=== PATIENT | female | born 1970 | race Caucasian/White ===

== ENCOUNTER 2017-06-19 19:43 | Observation (INO) | payer BC, OTHER ==
[~2017-06-19] VITALS: Ht 170.2 cm; Wt 112.1 kg
[~2017-06-19 19:43] MED LIST: IBUP-232 PO; LORTA5 PO; NUCY100T4 PO; SULF-154 PO
[2017-06-19 19:47] VITALS: BP 191/92; PULSE 114; RESP 20; TEMP 101.1; O2SAT 96
[2017-06-19] MEDS ORDERED: SODIUM CHLOR 0.9% 1000 ML INJ 1,000 ML IV SCH (20:02)
[2017-06-19] MEDS ORDERED: IBUP1TAB7 PO (20:05)
[2017-06-19] MEDS ORDERED: IMIT25TA PO (20:05)
[2017-06-19] MEDS ORDERED: NUCY100T9 PO (20:05)
--- NOTE | 2017-06-19 20:09 | PD ---
HPI Chief Complaint: Abdominal Pain Time Seen by Provider: 20:02 Travel History International Travel<30 days: No Contact w/Intl Traveler<30days: No Traveled to known affect area: No History of Present Illness HPI 47-year-old female presents to the emergency department by private transportation the care of her spouse for evaluation of 2 days of severe left lower quadrant abdominal pain. Patient has had prior history of diverticulitis ruptured ovarian cyst and kidney stone. Patient rates her pain 9-10/10 intensity. Patient states she took 800 mg ibuprofen prior to arrival to the emergency department. Patient has felt flushed and chilled over the past 2 days. Patient denies dysuria frequency urgency flank pain or hematuria. Patient's had no vaginal bleeding or vaginal discharge. Patient had no diarrhea mucoid or bloody stools. Patient's had nausea without vomiting. Patient denies any respiratory illness symptoms or chest pain. Patient is unable to identify exacerbating or alleviating factors. PFSH Past Medical History Narrative Medical Arthritis inoperable benign brain tumor migraine diverticulosis diverticulitis kidney stone ovarian cyst uterine/endometrial ablation laparotomy PVCs fibromyalgia chronic abdominal pain seizure cholecystectomy vein stripping breast augmentation; no tobacco use alcohol use no substance use; nursing notes reviewed Arthritis: Yes Blood Disorders: No Heart Rhythm Problems: Yes (FEW PREMATURE BEATS) Cancer: Yes (INOPERABLE BRAIN TUMOR) Cardiovascular Problems: Yes (irregular heart beat) Cerebrovascular Accident: Yes Diminished Hearing: No Diverticulitis: Yes Endocrine: No Fibromyalgia: Yes Gastrointestinal Disorders: Yes (ABD PAIN CHRONIC) Genitourinary: No Immune Disorder: No Neurologic: Yes (BENIGN BRAIN TUMOR) Psychiatric: No Reproductive: Yes (ENDOMETRIAL ABLATION: 1998) Respiratory: No Seizures: Yes PNEUMOCCOCAL Vaccine (Year): 2 ?: Unknown LMP: unknown Past Surgical History Cholecystectomy: Yes (1994) Gynecologic Surgery: Yes (UTERINE ABLATION) Hysterectomy: Yes (PARTIAL LINING REMOVAL) Other Surgery: Yes (VEIN STRIPPING BOTH LEGS, BREAST AUGMENTATION) Social History Alcohol Use: No Tobacco Use: No Substance Use: No Allergies-Medications (Allergen,Severity, Reaction): Coded Allergies: amoxicillin (Unverified Allergy, Severe, BLOODY DIARRHEA, 06/19/17) clavulanic acid (Unverified Allergy, Severe, BLOODY DIARRHEA, 06/19/17) cyclobenzaprine (Unverified Allergy, Severe, RASH, 06/19/17) tetanus toxoid, adsorbed (Unverified Allergy, Severe, "BASEBALL SIZE LUMP IN ARM, VERY PAINFUL", 06/19/17) triamcinolone (Unverified Allergy, Severe, Anaphylaxis, 06/19/17) codeine (Unverified Allergy, Mild, NAUSEA, UPSET STOMACH, 06/19/17) morphine (Unverified Allergy, Unknown, UNKNOWN, 06/19/17) Reported Meds & Prescriptions Reported Meds & Active Scripts Active Reported Imitrex (Sumatriptan Succinate) 25 Mg Tab 25 Mg PO ONCE PRN If a satisfactory response has not been obtained at 2 hours, a second dose may be administered Ibuprofen 800 Mg Tab 800 Mg PO Q8H PRN Nucynta ER (Tapentadol) 100 Mg Sherrell 100 Mg PO BID Review of Systems Except as stated in HPI: all other systems reviewed are Neg General / Constitutional: Positive: Fever, Chills Eyes: No: Visual changes HENT: No: Headaches, Neck Pain Cardiovascular: No: Chest Pain or Discomfort Respiratory: No: Shortness of Breath Gastrointestinal: Positive: Nausea, Abdominal Pain, No: Vomiting, Diarrhea, Hematemesis, Hematochezia Genitourinary: No: Urgency, Frequency, Dysuria, Pelvic Pain, Flank Pain Musculoskeletal: No: Myalgias, Arthralgias Skin: No Rash Neurologic: No: Weakness Psychiatric: Positive: Anxiety Hematologic/Lymphatic: No: Lymph Node Enlargement Physical Exam Narrative GENERAL: Well-developed well-nourished obese female in obvious discomfort no respiratory distress with fever 10 1F SKIN: Warm and dry. HEAD: Normocephalic. EYES: No scleral icterus. No injection or drainage. NECK: Supple, trachea midline. No JVD or lymphadenopathy. CARDIOVASCULAR: Increased regular rate and rhythm without murmurs, gallops, or rubs. RESPIRATORY: Breath sounds equal bilaterally. No accessory muscle use. GASTROINTESTINAL: Abdomen soft, diffusely tender to palpation without guarding or rebound, nondistended. MUSCULOSKELETAL: No cyanosis, or edema. BACK: Nontender without obvious deformity. No CVA tenderness. Data Data Last Documented VS Vital Signs Date Time Temp Pulse Resp B/P (MAP) Pulse Ox O2 Delivery O2 Flow Rate FiO2 06/19/17 20:30 97 18 143/85 (104) 96 Room Air 06/19/17 19:47 101.1 Orders Orders Complete Blood Count With Diff (4/22/18 20:02) Comprehensive Metabolic Panel (06/19/17 20:02) Lipase (06/19/17 20:02) Lactic Acid (06/19/17 20:) Urinalysis - C+S If Indicated (06/19/17 20:02) Ct Abd/Pel W Iv Contrast(Rout) (06/19/17 20:02) Iv Access Insert/Monitor (06/19/17 20:02) Ecg Monitoring (06/19/17:) Oximetry (06/19/17 20:) Ondansetron Inj (Zofran Inj) (06/19/17 20:15) Sodium Chlor 0.9% 1000 Ml Inj (Ns 1000 M (06/19/17 20:02) Sodium Chloride 0.9% Flush (Ns Flush) (06/19/17 20:15) Chest, Single Ap (06/19/17 20:02) Ed Urine Pregnancytest Poc (06/19/17 20:02) Blood Culture (06/19/17 20:06) Acetaminophen (Tylenol) (06/19/17 20:15) Hydromorphone Pf Inj (Dilaudid Pf Inj) (06/19/17 20:30) Iohexol 350 Inj (Omnipaque 350 Inj) (06/19/17 21:00) Ciprofloxacin 400 Mg Premix (Cipro 400 M (06/19/17 21:15) Metronidazole 500 Mg Inj (Flagyl 500 Mg (06/19/17 21:15) Labs Laboratory Tests Test 06/19/17 20:00 White Blood Count 12.5 TH/MM3 Red Blood Count 4.17 MIL/MM3 Hemoglobin 12.6 GM/DL Hematocrit 37.1 % Mean Corpuscular Volume 89.1 FL Mean Corpuscular Hemoglobin 30.3 PG Mean Corpuscular Hemoglobin Concent 34.0 % Red Cell Distribution Width 12.1 % Platelet Count 319 TH/MM3 Mean Platelet Volume 7.9 FL Neutrophils (%) (Auto) 77.3 % Lymphocytes (%) (Auto) 15.6 % Monocytes (%) (Auto) 5.1 % Eosinophils (%) (Auto) 1.3 % Basophils (%) (Auto) 0.7 % Neutrophils # (Auto) 9.6 TH/MM3 Lymphocytes # (Auto) 2.0 TH/MM3 Monocytes # (Auto) 0.6 TH/MM3 Eosinophils # (Auto) 0.2 TH/MM3 Basophils # (Auto) 0.1 TH/MM3 CBC Comment DIFF FINAL Differential Comment Urine Collection Type CLEAN CATCH Urine Color YELLOW Urine Turbidity CLEAR Urine pH 5.5 Urine Specific [place] 1.010 Urine Protein NEG mg/dL Urine Glucose (UA) NEG mg/dL Urine Ketones NEG mg/dL Urine Occult Blood MOD Urine Nitrite NEG Urine Bilirubin NEG Urine Urobilinogen 0.2 MG/DL Urine Leukocyte Esterase NEG Urine RBC 4-9 /hpf Urine WBC 0-2 /hpf Urine Squamous Epithelial Cells 0-5 /hpf Urine Bacteria RARE /hpf Urine Mucus /lpf Microscopic Urinalysis Comment CULT NOT INDICATED Blood Urea Nitrogen 19 MG/DL Creatinine 1.20 MG/DL Random Glucose 116 MG/DL Total Protein 8.0 GM/DL Albumin 3.7 GM/DL Calcium Level 9.2 MG/DL Alkaline Phosphatase 104 U/L Aspartate Amino Transf (AST/SGOT) 141 U/L Alanine Aminotransferase (ALT/SGPT) 109 U/L Total Bilirubin 0.4 MG/DL Sodium Level 136 MEQ/L Potassium Level 4.1 MEQ/L Chloride Level 103 MEQ/L Carbon Dioxide Level 27.2 MEQ/L Anion Gap 6 MEQ/L Estimat Glomerular Filtration Rate 48 ML/MIN Lactic Acid Level 0.7 mmol/L Lipase 119 U/L [facility] Medical Decision Making Medical Screen Exam Complete: Yes Emergency Medical Condition: Yes Medical Record Reviewed: Yes Interpretation(s) CT abd/pel: CONCLUSION: 1. The imaging findings are diagnostic of acute diverticulitis involving the mid sigmoid colon. There is trace free fluid in the pelvis. No abscess or free air is present. 2. Mildly enlarged common bile duct in this patient post cholecystectomy. This presumably is a normal appearance post cholecystectomy. Roc Corona MD on June 19, 2017 at 21:05 Board Certified Radiologist. This report was verified electronically. Last Impressions Chest X-Ray 06/19/172001 Signed Impressions: Service Date/Time: Monday, June 19, 2017 20:12 - CONCLUSION: No free air is visualized. No acute cardiopulmonary abnormality is identified. Roc Corona MD CBC & BMP Diagram 06/19/17 20:00 Total Protein 8.0, Albumin 3.7, Calcium Level 9.2, Alkaline Phosphatase 104, Aspartate Amino Transf (AST/SGOT) 141 H, Alanine Aminotransferase (ALT/SGPT) 109 H, Total Bilirubin 0.4 Vital Signs Date Time Temp Pulse Resp B/P (MAP) Pulse Ox O2 Delivery O2 Flow Rate FiO2 06/19/17 20:30 97 18 143/85 (104) 96 Room Air 06/19/17 19:47 101.1 114 20 191/92 (125) 96 Lactic acid 0.7, not elevated Differential Diagnosis Sepsis UTI pyelonephritis renal colic obstructive uropathy diverticulitis with or without abscess or perforation bowel obstruction atypical appendicitis Narrative Course Patient placed on court recording monitor with continuous pulse oximetry IV access obtained specimens collected and sent for resulting patient administered IV fluids Zofran for nausea and Dilaudid 1 mg IV for 9-10/10 pain also acetaminophen 1 g for fever At 8:55 PM patient notes symptom improvement Patient meets sepsis criteria based on heart rate, fever, leukocytosis, source intestine/diverticulitis, and potentially severe sepsis secondary to renal insufficiency; patient is clinically improved and has received Cipro and Flagyl for diverticulitis. Patient continues to complain of pain, although less intense. Plan for admission for iv fluids iv antibiotics and pain management. Call placed to [facility] service. Sepsis Criteria SIRS Criteria (2 or more): Temp > 100.9 or < 96.8, Heart rate over 90, WBC > 50689, < 4000 or > 10% bands Sepsis Criteria (SIRS+source): Infect source susp/known (diverticulitis) Severe Sepsis (+one): Acute Oliguria/Renal Failure Physician Communication Physician Communication call placed to [facility] service Diagnosis Primary Impression: Acute diverticulitis Additional Impression: Sepsis Eli Gonzalez MD Jun 19, 2017 20:08
[2017-06-19] MEDS ORDERED: SODIUM CHLORIDE 0.9% FLUSH 10 ML FLUSH IV FLUSH PRN ×2 (20:15→22:00)
[2017-06-19] MEDS ORDERED: ACETAMINOPHEN 500 MG CPLT PO ONE (20:15)
[2017-06-19] MEDS ORDERED: ONDANSETRON HCL 4 MG/2 ML VIAL IVP ONE (20:15)
[2017-06-19 20:20] LABS: BILIRUBIN, URINE NEG (NEG); BLOOD, URINE MOD (NEG); GLUCOSE,URINE NEG (NEG); KETONE, URINE NEG (NEG); NITRITE,URINE NEG (NEG); PH, URINE 5.5 (5.0-8.5); URINE COLOR YELLOW (YELLW/STRAW); URINE LEUKOCYTE ESTERASE NEG (NEG)
--- NOTE | 2017-06-19 20:27 | RADRPT ---
EXAM DATE/TIME: 06/19/2017 20:12 [facility] COMPARISON: CHEST SINGLE AP, August 18, 2012, 16:19. INDICATIONS : Evaluate for free air. Left side abdominal pain. MEDICAL HISTORY : None. SURGICAL HISTORY : Breast augmentation. ENCOUNTER: Initial ACUITY: 1 day PAIN SCORE: 6/10 LOCATION: Left Abdomen. FINDINGS: Portable AP view of the chest demonstrates a normal-sized cardiac silhouette. No effusion, consolidat ion, or pneumothorax is visualized. The bones and soft tissues demonstrate no acute abnormality. No f ree air is seen beneath the hemidiaphragms. CONCLUSION: No free air is visualized. No acute cardiopulmonary abnormality is identified. Roc Corona MD on June 19, 2017 at 20:24 Board Certified Radiologist. This report was verified electronically.
[2017-06-19 20:30] VITALS: BP 143/85; PULSE 97; RESP 18; O2SAT 96
[2017-06-19] MEDS ORDERED: HYDROmorphone HCL PF 2 MG/ML VIAL IV PUSH ONE (20:30)
[2017-06-19 20:31] LABS: CHLORIDE 103 MEQ/L (98-107); SODIUM (NA) 136 MEQ/L (136-145)
[2017-06-19 20:33] LABS: SQUAMOUS EPITHELIAL CELL URINE 0-5 /hpf (0-5); WBC, URINE 0-2 /hpf (0-5)
[2017-06-19 20:34] LABS: BACTERIA, URINE RARE /hpf
[2017-06-19 20:35] LABS: ALBUMIN 3.7 GM/DL (3.4-5.0); CALCIUM 9.2 MG/DL (8.5-10.1)
[2017-06-19 20:36] LABS: BICARBONATE 27.2 MEQ/L (21.0-32.0); BLOOD UREA NITROGEN 19 MG/DL (7-18); GLUCOSE,RANDOM 116 MG/DL (74-106)
[2017-06-19 20:38] LABS: ALT (GPT) 109 U/L (10-53); AST (GOT) 141 U/L (15-37); AUTOMATED NEUTROPHIL # 9.6 TH/MM3 (1.8-7.7); BASOPHIL # 0.1 TH/MM3 (0-0.2); BASOPHIL % 0.7 % (0.0-2.0); EOSINOPHIL # 0.2 TH/MM3 (0-0.4); EOSINOPHIL % 1.3 % (0.0-4.0); HEMATOCRIT 37.1 % (35.0-46.0); HEMOGLOBIN 12.6 GM/DL (11.6-15.3); LYMPH % 15.6 % (9.0-44.0); MEAN CELL VOLUME 89.1 FL (80.0-100.0); MEAN CORPUSCULAR HEMOGLOBIN 30.3 PG (27.0-34.0); MEAN PLATELET VOLUME 7.9 FL (7.0-11.0); MONO % 5.1 % (0.0-8.0); MONOCYTE # 0.6 TH/MM3 (0-0.9); NEUT % 77.3 % (16.0-70.0); PLATELET COUNT 319 TH/MM3 (150-450); RED BLOOD COUNT 4.17 MIL/MM3 (4.00-5.30); RED CELL DISTRIBUTION WIDTH 12.1 % (11.6-17.2); WHITE BLOOD COUNT 12.5 TH/MM3 (4.0-11.0)
[2017-06-19 20:39] LABS: GLOMERULAR FILTRATION RATE 48 ML/MIN (>89)
[2017-06-19 20:40] LABS: TOTAL BILIRUBIN ADULT 0.4 MG/DL (0.2-1.0)
[2017-06-19 20:41] LABS: ALKALINE PHOSPHATASE 104 U/L (45-117)
[2017-06-19] MEDS ORDERED: IOHEXOL 350 MG/ML 10 ML VIAL (for RAD DIAG) IVCONTRAST ONE (21:00)
[2017-06-19 21:12] VITALS: BP 119/62; PULSE 97; RESP 16; O2SAT 94
--- NOTE | 2017-06-19 21:12 | RADRPT ---
EXAM DATE/TIME: 06/19/2017 20:44 [facility] COMPARISON: No previous studies available for comparison. INDICATIONS : Left lower quadrant pain. IV CONTRAST: 75 cc Omnipaque 350 (iohexol) IV ORAL CONTRAST: No oral contrast ingested. RADIATION DOSE: 22.10 CTDIvol (mGy) MEDICAL HISTORY : Diverticulitis. SURGICAL HISTORY : Cholecystectomy. Hysterectomy. ENCOUNTER: Initial ACUITY: 1 day PAIN SCALE: 10/10 LOCATION: Left lower quadrant TECHNIQUE: Volumetric scanning of the abdomen and pelvis was performed. Using automated exposure control and ad justment of the mA and/or kV according to patient size, radiation dose was kept as low as reasonably achievable to obtain optimal diagnostic quality images. DICOM format image data is available electro nically for review and comparison. FINDINGS: LOWER LUNGS: The visualized lower lungs are clear. Breast implants are present. LIVER: Homogeneous density without lesion. Common bile duct is mildly enlarged measuring 11 mm but tapers di stally. Gallbladder is absent with clips in the gallbladder fossa. SPLEEN: Normal size without lesion. PANCREAS: Within normal limits. KIDNEYS: Normal in size and shape. There is no mass, stone or hydronephrosis. ADRENAL GLANDS: Within normal limits. VASCULAR: There is no aortic aneurysm. BOWEL/MESENTERY: The stomach and small bowel demonstrate no abnormality. There is sigmoid diverticulosis. An 8 cm fe th segment of mid sigmoid colon demonstrates circumferential wall thickening with surrounding inflamm ation. There is trace free fluid in the pelvis. No free air is seen. ABDOMINAL WALL: Within normal limits. RETROPERITONEUM: There is no lymphadenopathy. BLADDER: No wall thickening or mass. REPRODUCTIVE: No acute abnormality. INGUINAL: There is no lymphadenopathy or hernia. MUSCULOSKELETAL: No acute abnormality. CONCLUSION: 1. The imaging findings are diagnostic of acute diverticulitis involving the mid sigmoid colon. There is trace free fluid in the pelvis. No abscess or free air is present. 2. Mildly enlarged common bile duct in this patient post cholecystectomy. This presumably is a normal appearance post cholecystectomy. Roc Corona MD on June 19, 2017 at 21:05 Board Certified Radiologist. This report was verified electronically.
[2017-06-19] MEDS ORDERED: CIPROFLOXACIN 400 MG PREMIX 200 ML IV ONE (21:15)
[2017-06-19] MEDS ORDERED: metroNIDAZOLE 500 MG INJ 100 ML IV ONE (21:15)
[2017-06-19 21:25] VITALS: TEMP 99.6
[2017-06-19] MEDS ORDERED: SODIUM CHLOR 0.9% 1000 ML INJ 1,000 ML IV ONE (21:45)
[2017-06-19] MEDS ORDERED: NALOXONE HCL 0.4 MG/ML AMP IV PUSH PRN (22:00)
[2017-06-19] MEDS ORDERED: ACETAMINOPHEN 325 MG TAB PO PRN (22:00)
[2017-06-19] MEDS ORDERED: ONDANSETRON HCL 4 MG/2 ML VIAL IVP PRN (22:00)
[2017-06-19 22:10] VITALS: BP 169/85; PULSE 84; O2SAT 96
[2017-06-19] MEDS ORDERED: HYDROmorphone HCL PF 2 MG/ML VIAL IV PUSH PRN (22:45)
[2017-06-19] MEDS ORDERED: ENOXAPARIN SODIUM 40 MG/0.4 ML SYRINGE SQ SCH (23:00)
[2017-06-19] MEDS: SODIUM CHLOR 0.9% 1000 ML INJ 1,000 ML IV SCH (23:41)
[2017-06-20] VITALS: BP 100/57; PULSE 73; RESP 20; TEMP 97.2; O2SAT 97
[2017-06-20 04:00] VITALS: BP 93/55; PULSE 61; RESP 20; TEMP 96.8; O2SAT 97
[2017-06-20] MEDS: metroNIDAZOLE 500 MG INJ 100 ML IV SCH ×2 (05:02→11:57)
[2017-06-20 05:52] LABS: AUTOMATED NEUTROPHIL # 8.1 TH/MM3 (1.8-7.7); BASOPHIL # 0.1 TH/MM3 (0-0.2); BASOPHIL % 0.7 % (0.0-2.0); EOSINOPHIL # 0.1 TH/MM3 (0-0.4); EOSINOPHIL % 1.3 % (0.0-4.0); HEMATOCRIT 34.3 % (35.0-46.0); HEMOGLOBIN 11.3 GM/DL (11.6-15.3); LYMPH % 17.7 % (9.0-44.0); MEAN CELL VOLUME 89.9 FL (80.0-100.0); MEAN CORPUSCULAR HEMOGLOBIN 29.5 PG (27.0-34.0); MEAN CORPUSCULAR HGB CONC 32.8 % (32.0-36.0); MEAN PLATELET VOLUME 7.7 FL (7.0-11.0); MONO % 6.9 % (0.0-8.0); MONOCYTE # 0.8 TH/MM3 (0-0.9); NEUT % 73.4 % (16.0-70.0); PLATELET COUNT 276 TH/MM3 (150-450); RED BLOOD COUNT 3.81 MIL/MM3 (4.00-5.30); RED CELL DISTRIBUTION WIDTH 11.9 % (11.6-17.2); WHITE BLOOD COUNT 11.1 TH/MM3 (4.0-11.0)
[2017-06-20] MEDS: SODIUM CHLOR 0.9% 1000 ML INJ 1,000 ML IV SCH ×2 (06:00→14:00)
[2017-06-20 06:18] LABS: ALBUMIN 2.8 GM/DL (3.4-5.0); ALKALINE PHOSPHATASE 87 U/L (45-117); ALT (GPT) 95 U/L (10-53); AST (GOT) 102 U/L (15-37); BICARBONATE 25.3 MEQ/L (21.0-32.0); BLOOD UREA NITROGEN 15 MG/DL (7-18); CALCIUM 7.7 MG/DL (8.5-10.1); CHLORIDE 112 MEQ/L (98-107); CREATININE 0.67 MG/DL (0.50-1.00); GLOMERULAR FILTRATION RATE 94 ML/MIN (>89); GLUCOSE,RANDOM 106 MG/DL (74-106); SODIUM (NA) 142 MEQ/L (136-145); TOTAL BILIRUBIN ADULT 0.9 MG/DL (0.2-1.0); TOTAL PROTEIN 6.4 GM/DL (6.4-8.2)
[2017-06-20 07:30] VITALS: BP 111/55; PULSE 63; RESP 20; TEMP 96.6; O2SAT 95
--- NOTE | 2017-06-20 07:56 | HHI.HP ---
[facility] Primary [facility] Physician Gibson Call MD Admission Diagnosis Acute diverticulitis; sepsis; renal insufficiency Diagnoses: (1) Acute diverticulitis (2) Sepsis Chief Complaint: Abdominal pain Travel History International Travel<30 Days: No Contact w/Intl Traveler <30 Da: No Traveled to Known Affected Are: No History of Present Illness This is a pleasant 47-year-old female patient with a known medical history of diverticulosis, migraines, benign brain tumor who presented to the ED with complaints of severe left lower quadrant abdominal pain. Patient states around 2 days ago she started to develop subjective fever and chills, was lying in bed and just could not get comfortable. She went Tuesday with similar complaints, feeling like the pain would come in waves and eventually on Tuesday she was unable to walk, was hunched over due to the pain and it was so severe she presented via private vehicle to the emergency department. Patient does admit to a history of diverticulosis. She states she has had one flareup before over 10 years ago, was following with Dr. Barney, but has not had any problems since then. Patient rates the pain a 10 out of 10 on pain scale at its worst, denies any radiation of pain, admitted to taking ibuprofen with minimal relief before presentation. Denies any associated vomiting, does admit to some nausea and shortness of breath. Does admit to subjective fevers although did not take it at home. Denies any cough, dysuria or diarrhea. Denies any hematozemia. PCP is Dr. Baker. 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 Patient also does report of a history of PVCs and irregular heartbeat, did undergo a stress test last November with benign abnormalities, is following with cardiology. Patient denies any tobacco abuse. Family history significant for hypertension. Review of Systems Constitutional: COMPLAINS OF: Diaphoretic episodes, Fever, Chills Eyes: DENIES: Blurred vision, Diplopia Respiratory: COMPLAINS OF: Shortness of breath, DENIES: Cough, Sputum production Cardiovascular: DENIES: Chest pain, Palpitations Gastrointestinal: COMPLAINS OF: Abdominal pain, Nausea, DENIES: Black stools, Bloody stools, Constipation, Diarrhea, Vomiting Musculoskeletal: DENIES: Joint pain Neurologic: DENIES: Abnormal gait Psychiatric: COMPLAINS OF: Anxiety Except as stated in HPI: all other systems reviewed are Neg Past Family Social History Past Medical History Arthritis Fibromyalgia Migraines Benign brain tumor that is inoperable Diverticulosis History of kidney stones Ovarian cysts PVCs and irregular heartbeat History of seizures Past Surgical History Cholecystectomy Uterine ablation Partial hysterectomy History of vein stripping in bilateral lower extremities. Breast augmentation Reported Medications Active Reported Imitrex (Sumatriptan Succinate) 25 Mg Tab 25 Mg PO ONCE PRN If a satisfactory response has not been obtained at 2 hours, a second dose may be administered Ibuprofen 800 Mg Tab 800 Mg PO Q8H PRN Nucynta ER (Tapentadol) 100 Mg Sherrell 100 Mg PO BID Allergies: Coded Allergies: amoxicillin (Unverified Allergy, Severe, BLOODY DIARRHEA, 06/19/17) clavulanic acid (Unverified Allergy, Severe, BLOODY DIARRHEA, 06/19/17) cyclobenzaprine (Unverified Allergy, Severe, RASH, 06/19/17) tetanus toxoid, adsorbed (Unverified Allergy, Severe, "BASEBALL SIZE LUMP IN ARM, VERY PAINFUL", 06/19/17) triamcinolone (Unverified Allergy, Severe, Anaphylaxis, 06/19/17) codeine (Unverified Allergy, Mild, NAUSEA, UPSET STOMACH, 06/19/17) morphine (Unverified Allergy, Unknown, UNKNOWN, 06/19/17) Active Ordered Medications Current Medications Medications (Trade) Dose Ordered Sig/Mona Route Start Time Stop Time Status Last Admin Ciprofloxacin/ Dextrose 200 ml @ 200 mls/hr Q12H IV 06/20/17 09:00 Metronidazole 100 ml @ 100 mls/hr Q6H IV 06/20/17 04:00 06/20/17 05:02 Sodium Chloride 1,000 ml @ 125 mls/hr Q8H IV 06/19/17 22:00 06/19/17 23:41 (NS Flush) 2 ml UNSCH PRN IV FLUSH 06/19/17 22:00 (NS Flush) 2 ml BID IV FLUSH 06/20/17 09:00 (Tylenol) 650 mg Q4H PRN PO 06/19/17 22:00 (Zofran Inj) 4 mg Q6H PRN IVP 06/19/17 22:00 (Narcan Inj) 0.4 mg UNSCH PRN IV PUSH 06/19/17 22:00 (Lovenox Inj) 40 mg Q24H SQ 06/19/17 23:00 06/19/17 22:36 (Dilaudid Pf Inj) 1 mg Q4H PRN IV PUSH 06/19/17 22:45 Family History Both mother and father have a history of hypertension. Social History Patient denies any history of or current tobacco use, alcohol or illicit drug use. Physical Exam Vital Signs Vital Signs Date Time Temp Pulse Resp B/P (MAP) Pulse Ox O2 Delivery O2 Flow Rate FiO2 06/20/17 04:00 96.8 61 20 93/55 (68) 97 06/20/17 00:06 06/20/17 00:00 97.2 73 20 100/57 (71) 97 06/19/17 22:10 84 169/85 (113) 96 Room Air 06/19/17 21:25 99.6 06/19/17 21:12 97 16 119/62 (81) 94 Room Air 06/19/17 20:30 97 18 143/85 (104) 96 Room Air 06/19/17 19:47 101.1 114 20 191/92 (125) 96 Physical Exam GENERAL: Well-developed, well-nourished patient in [facility]. SKIN: Warm and dry. No rash. HEAD: Normocephalic. Atraumatic. EYES: Pupils equal and round. No scleral icterus. No injection or drainage. ENT: No nasal bleeding or discharge. Mucous membranes pink and moist. NECK: Supple. Trachea midline. CARDIOVASCULAR: Regular rate and rhythm. S1, S2 noted. No murmur appreciated. RESPIRATORY: No accessory muscle use. Clear to auscultation. Breath sounds equal bilaterally. GASTROINTESTINAL: Abdomen soft, non-tender, nondistended. Normoactive bowel sounds x4. No pain to palpation MUSCULOSKELETAL: No obvious deformities. Extremities without clubbing, cyanosis , or edema. NEUROLOGICAL: Awake and alert. No obvious cranial nerve deficits. Motor grossly within normal limits. 5/5 muscle strength in bilateral upper and lower extremities. Normal speech. PSYCHIATRIC: Appropriate mood and affect; insight and judgment normal. Laboratory Laboratory Tests Test 06/19/17 20:00 06/20/17 05:35 White Blood Count 12.5 11.1 Red Blood Count 4.17 3.81 Hemoglobin 12.6 11.3 Hematocrit 37.1 34.3 Mean Corpuscular Volume 89.1 89.9 Mean Corpuscular Hemoglobin 30.3 29.5 Mean Corpuscular Hemoglobin Concent 34.0 32.8 Red Cell Distribution Width 12.1 11.9 Platelet Count 319 276 Mean Platelet Volume 7.9 7.7 Neutrophils (%) (Auto) 77.3 73.4 Lymphocytes (%) (Auto) 15.6 17.7 Monocytes (%) (Auto) 5.1 6.9 Eosinophils (%) (Auto) 1.3 1.3 Basophils (%) (Auto) 0.7 0.7 Neutrophils # (Auto) 9.6 8.1 Lymphocytes # (Auto) 2.0 2.0 Monocytes # (Auto) 0.6 0.8 Eosinophils # (Auto) 0.2 0.1 Basophils # (Auto) 0.1 0.1 CBC Comment DIFF FINAL DIFF FINAL Differential Comment Urine Collection Type CLEAN CATCH Urine Color YELLOW Urine Turbidity CLEAR Urine pH 5.5 Urine Specific [place] 1.010 Urine Protein NEG Urine Glucose (UA) NEG Urine Ketones NEG Urine Occult Blood MOD Urine Nitrite NEG Urine Bilirubin NEG Urine Urobilinogen 0.2 Urine Leukocyte Esterase NEG Urine RBC 4-9 Urine WBC 0-2 Urine Squamous Epithelial Cells 0-5 Urine Bacteria RARE Urine Mucus Microscopic Urinalysis Comment CULT NOT INDICATED Blood Urea Nitrogen 19 15 Creatinine 1.20 0.67 Random Glucose 116 106 Total Protein 8.0 6.4 Albumin 3.7 2.8 Calcium Level 9.2 7.7 Alkaline Phosphatase 104 87 Aspartate Amino Transf (AST/SGOT) 141 102 Alanine Aminotransferase (ALT/SGPT) 109 95 Total Bilirubin 0.4 0.9 Sodium Level 136 142 Potassium Level 4.1 4.0 Chloride Level 103 112 Carbon Dioxide Level 27.2 25.3 Anion Gap 6 5 Estimat Glomerular Filtration Rate 48 94 Lactic Acid Level 0.7 Lipase 119 Date/Time Source Procedure Growth Status 06/19/17 20:05 Blood Peripheral Aerobic Blood Culture Pending Received 06/19/17 20:05 Blood Peripheral Anaerobic Blood Culture Pending Received Result Diagram: 06/20/17 0535 06/20/17 0535 Imaging Last Impressions Chest X-Ray 06/19/172001 Signed Impressions: Service Date/Time: Monday, June 19, 2017 20:12 - CONCLUSION: No free air is visualized. No acute cardiopulmonary abnormality is identified. Roc Corona MD Abdomen/Pelvis CT 06/19/172001 Signed Impressions: Service Date/Time: Monday, June 19, 2017 20:44 - CONCLUSION: 1. The imaging findings are diagnostic of acute diverticulitis involving the mid sigmoid colon. There is trace free fluid in the pelvis. No abscess or free air is present. 2. Mildly enlarged common bile duct in this patient post cholecystectomy. This presumably is a normal appearance post cholecystectomy. Roc Corona MD Septic Shock Reassessment Septic shock perfusion: reassessment completed Caprini VTE Risk Assessment Caprini VTE Risk Assessment: No/Low Risk (score <= 1) Caprini Risk Assessment Model Point Value = 1 Point Value = 2 Point Value = 3 Point Value = 5 Age 41-60 Minor surgery BMI > 25 kg/m2 Swollen legs Varicose veins or History of unexplained or recurrent spontaneous Oral contraceptives or hormone replacement Sepsis (< 1 month) Serious lung disease, including pneumonia (< 1 month) Abnormal pulmonary function Acute myocardial infarction Congestive heart failure (< 1 month) History of inflammatory bowel disease Medical patient at bed rest Age 61-74 Arthroscopic surgery Major open surgery (> 45 min) Laparoscopic surgery (> 45 min) Malignancy Confined to bed (> 72 hours) Immobilizing plaster cast Central venous access Age >= 75 History of VTE Family history of VTE Factor V Leiden Prothrombin [id number] Lupus anticoagulant Anticardiolipin antibodies Elevated serum homocysteine Heparin-induced thrombocytopenia Other congenital or acquired thrombophilia Stroke (< 1 month) Elective arthroplasty Hip, pelvis, or leg fracture Acute spinal cord injury (< 1 month) Prophylaxis Regimen Total Risk Factor Score Risk Level Prophylaxis Regimen 0-1 Low Early ambulation 2 Moderate Order ONE of the following: *Sequential Compression Device (SCD) *Heparin 5000 units SQ BID 3-4 Higher Order ONE of the following medications: *Heparin 5000 units SQ TID *Enoxaparin/Lovenox 40 mg SQ daily (WT < 150 kg, CrCl > 30 mL/min) *Enoxaparin/Lovenox 30 mg SQ daily (WT < 150 kg, CrCl > 10-29 mL/min) *Enoxaparin/Lovenox 30 mg SQ BID (WT < 150 kg, CrCl > 30 mL/min) AND/OR *Sequential Compression Device (SCD) 5 or more Highest Order ONE of the following medications: *Heparin 5000 units SQ TID (Preferred with Epidurals) *Enoxaparin/Lovenox 40 mg SQ daily (WT < 150 kg, CrCl > 30 mL/min) *Enoxaparin/Lovenox 30 mg SQ daily (WT < 150 kg, CrCl > 10-29 mL/min) *Enoxaparin/Lovenox 30 mg SQ BID (WT < 150 kg, CrCl > 30 mL/min) AND *Sequential Compression Device (SCD) Assessment and Plan Problem List: (1) Acute diverticulitis ICD Code: K57.92 - Diverticulitis of intestine, part unspecified, without perforation or abscess without bleeding Status: Acute Plan: Patient presented with severe abdominal pain in her left lower quadrant. Abdominal/pelvis CT performed and reviewed showing acute diverticulitis involving the mid sigmoid colon. Trace free fluid is in the pelvis. No abscess or free air is present. Patient has been started on IV antibiotics, Flagyl and Cipro. Has been given IV fluids. As well as 2 L NS bolus in ED. IV Dilaudid has been given. Available as needed for pain scale. Zofran available for any nausea or vomiting. Patient denies any emesis at this time. Patient is afebrile overnight. Vital signs are stable. Leukocytosis improving overnight. Mildly elevated LFTs, are trending down. Bilirubin normal. BMP essentially unremarkable. Did present with acute kidney injury, after hydration this is improved. UA is negative. Chest x-ray reviewed showing no free air. No acute cardiopulmonary disease. DVT prophylaxis: SCDs. Lovenox. Discussed Condition With If patient's pain is controlled later this afternoon and is tolerating a full liquid diet patient is able to go home with follow-up outpatient. Continue to monitor. Ashia Jain Jun 20, 2017 07:56
[2017-06-20] MEDS ORDERED: CIPROFLOXACIN 400 MG PREMIX 200 ML IV SCH (09:00)
[2017-06-20] MEDS ORDERED: SODIUM CHLORIDE 0.9% FLUSH 10 ML FLUSH IV FLUSH SCH (09:00)
--- NOTE | 2017-06-20 10:41 | HHI.DCPOC ---
Discharge Care Plan Diagnosis: (1) Acute diverticulitis Goals to Promote Your Health * To prevent worsening of your condition and complications * To maintain your health at the optimal level Directions to Meet Your Goals Take your medications as prescribed Follow your dietary instruction Follow activity as directed Keep your appointments as scheduled Take your immunizations and boosters as scheduled If your symptoms worsen call your PCP, if no PCP go to Urgent Care Center or Emergency Room Smoking is Dangerous to Your Health. Avoid second hand smoke Call the 24-hour hour crisis hotline for domestic abuse at Ashia Jain Jun 20, 2017 10:41
[2017-06-20] MEDS ORDERED: CIPR500T2 PO (10:42)
[2017-06-20] MEDS ORDERED: METR1TAB76 PO (10:42)
[2017-06-20 11:30] VITALS: BP 135/67; PULSE 68; RESP 20; TEMP 97.1; O2SAT 99
[2017-06-20 12:45] VITALS: RESP 17
[2017-06-20] MEDS ORDERED: NORC5TAB PO (15:02)
== END 2017-06-20 15:05 | disposition home or self-care (01) ==
LOC: PHED 19:43 → PHEDA 21:43 → PH3A 06-20 00:07
PROVIDERS: ADMIT Hospitalist; ATTEND Hospitalist
DX: K57.32 Diverticulitis of large intestine without perforation or abscess without bleeding (principal); A41.9 Sepsis, unspecified organism; R79.89 Other specified abnormal findings of blood chemistry; N17.9 Acute kidney failure, unspecified; M79.7 Fibromyalgia; M19.90 Unspecified osteoarthritis, unspecified site; Z86.73 Personal history of transient ischemic attack (TIA), and cerebral infarction without residual deficits
CPT/HCPCS: 71045; 74177; 80053; 81001; 83605; 83690; 84703; 85025; 87040; 96361; 96365; 96366; 96375; 96376; 99285; G0378; J0744; J1170; J1650; J2405; J7030; Q9967

== ENCOUNTER 2017-07-18 14:44 | Emergency (ER) | payer OTHER, BC ==
[~2017-07-18] VITALS: Ht 167.6 cm; Wt 104.5 kg
[~2017-07-18 14:44] MED LIST changes: +CIPR500T2 PO; -IBUP-232 PO; +IBUP1TAB7 PO; +IMIT25TA PO; -LORTA5 PO; +METR1TAB76 PO; +NORC5TAB PO; -NUCY100T4 PO; +NUCY100T9 PO; -SULF-154 PO
[2017-07-18 15:15] VITALS: BP 158/73; PULSE 75; RESP 18; O2SAT 99
--- NOTE | 2017-07-18 15:25 | PD ---
HPI Time Seen by Provider: 15:25 PFSH Past Medical History Arthritis: Yes Blood Disorders: No Heart Rhythm Problems: Yes (FEW PREMATURE BEATS) Cancer: Yes (INOPERABLE BRAIN TUMOR) Cardiovascular Problems: Yes (irregular heart beat) Cerebrovascular Accident: Yes (TIA: 2005) Diminished Hearing: No Diverticulitis: Yes Endocrine: No Fibromyalgia: Yes Gastrointestinal Disorders: Yes (ABD PAIN CHRONIC) Genitourinary: No Immune Disorder: No Neurologic: Yes (BENIGN BRAIN TUMOR) Psychiatric: No Reproductive: Yes (ENDOMETRIAL ABLATION: 1998) Respiratory: No Seizures: Yes PNEUMOCCOCAL Vaccine (Year): 2 : 2 Para: 2 Ovarian Cysts: Yes Past Surgical History Cholecystectomy: Yes (1994) Gynecologic Surgery: Yes (UTERINE ABLATION) Hysterectomy: Yes (PARTIAL LINING REMOVAL) Other Surgery: Yes (VEIN STRIPPING BOTH LEGS, BREAST AUGMENTATION) Social History Alcohol Use: No Tobacco Use: No Substance Use: No Allergies-Medications (Allergen,Severity, Reaction): Coded Allergies: amoxicillin (Unverified Allergy, Severe, BLOODY DIARRHEA, 06/19/17) clavulanic acid (Unverified Allergy, Severe, BLOODY DIARRHEA, 06/19/17) cortisone (Verified Allergy, Severe, Anaphylaxis, 07/18/17) cyclobenzaprine (Unverified Allergy, Severe, RASH, 06/19/17) tetanus toxoid, adsorbed (Unverified Allergy, Severe, "BASEBALL SIZE LUMP IN ARM, VERY PAINFUL", 06/19/17) triamcinolone (Unverified Allergy, Severe, Anaphylaxis, 06/19/17) codeine (Unverified Allergy, Mild, NAUSEA, UPSET STOMACH, 06/19/17) morphine (Unverified Allergy, Unknown, UNKNOWN, 06/19/17) Reported Meds & Prescriptions Reported Meds & Active Scripts Active Reported Imitrex (Sumatriptan Succinate) 25 Mg Tab 25 Mg PO ONCE PRN If a satisfactory response has not been obtained at 2 hours, a second dose may be administered Nucynta ER (Tapentadol) 100 Mg Sherrell 100 Mg PO BID Data Data Orders Orders Complete Blood Count With Diff (07/18/17 15:35) Comprehensive Metabolic Panel (07/18/17 15:35) Prothrombin Time / Inr (Pt) (07/18/17 15:35) Act Partial Throm Time (Ptt) (07/18/17 15:35) Ct Brain W/O Iv Contrast(Rout) (07/18/17 15:35) Ct Abd/Pel W Iv Contrast(Rout) (07/18/17 15:35) Ct Cerv Spine W/O Contrast (07/18/17 ) Ct Thorax/ Chest W Iv Contrast (07/18/17 ) Ed Urine Pregnancytest Poc (07/18/17 15:35) Sodium Chlor 0.9% 1000 Ml Inj (Ns 1000 M (07/18/17 15:45) Ct Lumb Spine W/O Contrast (07/18/17 ) Yaquelin Forde MD July 18, 2017 15:25
[2017-07-18] MEDS ORDERED: SODIUM CHLOR 0.9% 1000 ML INJ 1,000 ML IV ONE (15:45)
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
[2017-07-18 16:26] LABS: AUTOMATED NEUTROPHIL # 9.7 TH/MM3 (1.8-7.7); BASOPHIL # 0.1 TH/MM3 (0-0.2); BASOPHIL % 0.7 % (0.0-2.0); EOSINOPHIL # 0.1 TH/MM3 (0-0.4); EOSINOPHIL % 1.1 % (0.0-4.0); HEMATOCRIT 37.3 % (35.0-46.0); HEMOGLOBIN 12.4 GM/DL (11.6-15.3); LYMPH % 12.5 % (9.0-44.0); LYMPHOCYTE # 1.5 TH/MM3 (1.0-4.8); MEAN CELL VOLUME 89.6 FL (80.0-100.0); MEAN CORPUSCULAR HEMOGLOBIN 29.8 PG (27.0-34.0); MEAN CORPUSCULAR HGB CONC 33.3 % (32.0-36.0); MEAN PLATELET VOLUME 8.1 FL (7.0-11.0); MONO % 4.5 % (0.0-8.0); MONOCYTE # 0.5 TH/MM3 (0-0.9); NEUT % 81.2 % (16.0-70.0); PLATELET COUNT 296 TH/MM3 (150-450); RED BLOOD COUNT 4.17 MIL/MM3 (4.00-5.30); RED CELL DISTRIBUTION WIDTH 13.3 % (11.6-17.2); WHITE BLOOD COUNT 11.9 TH/MM3 (4.0-11.0)
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
[2017-07-18 16:45] LABS: ALBUMIN 3.8 GM/DL (3.4-5.0); ALKALINE PHOSPHATASE 72 U/L (45-117); ALT (GPT) 39 U/L (10-53); AST (GOT) 38 U/L (15-37); BICARBONATE 25.2 MEQ/L (21.0-32.0); BLOOD UREA NITROGEN 15 MG/DL (7-18); CHLORIDE 104 MEQ/L (98-107); CREATININE 0.76 MG/DL (0.50-1.00); GLOMERULAR FILTRATION RATE 81 ML/MIN (>89); GLUCOSE,RANDOM 110 MG/DL (74-106); SODIUM (NA) 138 MEQ/L (136-145); TOTAL BILIRUBIN ADULT 0.3 MG/DL (0.2-1.0); TOTAL PROTEIN 7.5 GM/DL (6.4-8.2)
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
[2017-07-18] MEDS ORDERED: IOHEXOL 350 MG/ML 10 ML VIAL (for RAD DIAG) IVCONTRAST ONE (17:22)
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
[2017-07-18] MEDS ORDERED: IBUP1TAB7 PO (17:59)
[2017-07-18] MEDS ORDERED: ROBA750T PO (17:59)
[2017-07-18] MEDS ORDERED: ORPHENADRINE INJ 60 MG/2 ML AMP IM ONE (18:00)
[2017-07-18] MEDS ORDERED: KETOROLAC TROMETHAMINE 60 MG/2 ML (IM) VIAL IM ONE (18:00)
== END 2017-07-18 19:27 | disposition home or self-care (01) ==
LOC: NEPD 14:44
DX: T14.8XXA Other injury of unspecified body region, initial encounter (principal); M25.562 Pain in left knee; M25.572 Pain in left ankle and joints of left foot; M25.571 Pain in right ankle and joints of right foot; R10.12 Left upper quadrant pain; M25.512 Pain in left shoulder; M54.2 Cervicalgia; V59.9XXA Occupant (driver) (passenger) of pick-up truck or van injured in unspecified traffic accident, initial encounter
CPT/HCPCS: 70450; 71260; 72125; 72132; 73600; 73610; 74177; 80053; 84703; 85025; 85610; 85730; 96360; 96361; 96372; 99285; J1885; J2360; J7030; Q9967